=== PATIENT | female | born 1990 | race Caucasian/White ===

== ENCOUNTER 2019-03-25 06:23 | Inpatient (IN) ==
[~2019-03-25 06:23] MED LIST: CEFAZOLIN 2000MG 2,000 MG/15 ML SYR IV SCH; CITRIC ACID/SODIUM CITRATE 15 ML UDC PO SCH
[2019-03-25] MEDS ORDERED: TERBUTALINE SULFATE 1 MG/ML VIAL SQ ONE (09:48)
[2019-03-25] MEDS ORDERED: TERBUTALINE SULFATE 1 MG/ML VIAL ONE (09:54)
[2019-03-25] MEDS ORDERED: LACTATED RINGER'S 1,000 ML IV SCH ×2 (10:00→12:45)
[2019-03-25 10:10] LABS: Basophils # (auto) 0.01 K/uL (0-0.2); Basophils % (auto) 0.1 %; Eosinophils # (auto) 0.01 K/uL (0-0.5); Eosinophils % (auto) 0.1 %; Hematocrit (blood only) 33.5 % (37-47); Hemoglobin 11.7 g/dL (12.0-16.0); Immature Granulocytes # (auto) 0.02 K/uL (0.00-0.02); Immature Granulocytes % (auto) 0.2 %; Lymphocytes # (auto) 1.67 K/uL (1.2-3.4); Lymphocytes % (auto) 18.8 %; Mean Corpuscular Volume 84.4 fL (80-100); Mean Platelet Volume 11.1 fL (7.4-10.4); Monocytes # (auto) 0.41 K/uL (0.11-0.59); Monocytes % (auto) 4.6 %; Neutrophils # (auto) 6.78 K/uL (1.4-6.5); Neutrophils % (auto) 76.2 %; Platelet Count 177 K/uL (130-400); RDW Coefficient of Variation 14.1 % (11.5-14.5); RDW Standard Deviation 43.9 fL (36.4-46.3); Red Blood Count 3.97 M/uL (4.2-5.4)
[2019-03-25 10:14] LABS: Mean Corpuscular Hgb Conc 34.9 g/dL (32-36)
[2019-03-25] MEDS ORDERED: MoRPHine SULFATE PF 1 MG/ML 10 ML AMP/VIAL ONE (10:41)
[2019-03-25] MEDS ORDERED: fentaNYL citrate 100 MCG/2 ML VIAL ONE (10:41)
[2019-03-25] MEDS: LACTATED RINGER'S 1,000 ML IV SCH ×2 (10:48→19:12)
[2019-03-25] MEDS ORDERED: OXYTOCIN 10 UNITS/ML VIAL IM ONE (11:52)
[2019-03-25] MEDS ORDERED: METHYLERGONOVINE MALEATE 0.2 MG/ML AMP ONE (12:02)
[2019-03-25] MEDS ORDERED: ONDANSETRON INJ 2 MG/ML 2 ML VIAL ONE (12:02)
[2019-03-25] MEDS ORDERED: PHENYLEPHRINE 100MCG/ML 5ML SYR ONE (12:02)
[2019-03-25] MEDS ORDERED: DEXAMETHASONE SOD INJ 4 MG/ML VIAL ONE (12:02)
[2019-03-25] MEDS ORDERED: NALOXONE HCL 0.4 MG/1 ML VIAL/CARP IV PRN (12:07)
[2019-03-25] MEDS ORDERED: NALBUPHINE HCL INJ 10 MG/ML AMP IV PRN (12:07)
[2019-03-25] MEDS ORDERED: NALOXONE HCL 0.08 MG in SYRINGE 1.8 ML IV PRN (12:07)
[2019-03-25] MEDS ORDERED: ePHEDrine sulfate 50 MG/ML AMP IV PRN (12:07)
[2019-03-25] MEDS ORDERED: DiphenhydrAMINE HCL 50 MG/ML VIAL IV PRN (12:07)
[2019-03-25] MEDS ORDERED: PROMETHAZINE HCL 25 MG in SODIUM CHLORIDE 0.9% 50 ML IV PRN (12:07)
[2019-03-25] MEDS ORDERED: LACTATED RINGER'S 500 ML IV PRN (12:07)
[2019-03-25] MEDS ORDERED: NALOXONE HCL 1 MG in SODIUM CHLORIDE 0.9% 1000ML 1,000 ML IV PRN (12:07)
[2019-03-25] MEDS ORDERED: ONDANSETRON INJ 2 MG/ML 2 ML VIAL IV PRN ×2 (12:07→12:35)
[2019-03-25] MEDS ORDERED: MoRPHine SULFATE PF 1 MG/ML 10 ML AMP/VIAL INT SPINAL ONE (12:07)
[2019-03-25] MEDS ORDERED: NO NARCOTICS OR SEDATIVES SCH (12:15)
[2019-03-25] MEDS ORDERED: SODIUM CHLORIDE 0.9% 1000ML 1,000 ML IV SCH (12:15)
--- NOTE | 2019-03-25 12:18 | History and Physical Report ---
DATE OF ADMISSION: 03/25/2019 HISTORY OF PRESENT ILLNESS: The patient is a 28-year-old G1, P0, due date 03/29/2019, making her 39 weeks and 3 days, presented to labor and delivery with spontaneous rupture of membranes at 0500 hours today. Fluid is clear. On arrival to labor and delivery, she had no shortness of breath, no chills, no fever. The infant, however, is breech. Ultrasound done has confirmed that the is breech. This was known and the patient was scheduled for section on Tuesday. COURSE: Unremarkable. LABORATORIES: Blood type O positive, antibody negative, rubella immune. PAST MEDICAL HISTORY: None. PAST SURGICAL HISTORY: None. SOCIAL HISTORY: The patient denies tobacco, drug or alcohol use. ALLERGIES: CODEINE. FAMILY HISTORY: Noncontributory. PHYSICAL EXAMINATION HEART: S1, S2, regular rhythm and rate. LUNGS: Clear to auscultation bilaterally. ABDOMEN: Soft, gravid. Bedside ultrasound shows breech presentation. PELVIC: 2 cm, 50% effaced. EXTREMITIES: No cyanosis, clubbing, or edema. ASSESSMENT AND PLAN: A 28-year-old 1, para 0 at 39 weeks and 3 days' gestation, breech presentation. The patient had term premature rupture of membranes. The patient was scheduled for section. We will proceed with section as scheduled. Reviewed risks of surgery including but not limited to infection, bleeding, damage to internal organs. The patient has re-signed consent with Dr. Washington. Anesthesia is notified. We will proceed with surgery.
[2019-03-25] MEDS ORDERED: OXYTOCIN 10 UNITS/ML VIAL ONE (12:19)
[2019-03-25] MEDS ORDERED: miSOPROStol 200 MCG TAB ONE (12:28)
[2019-03-25] MEDS ORDERED: BENZOCAINE 20% AER SPR 82.5 GM CAN EXT PRN (12:35)
[2019-03-25] MEDS ORDERED: MAGNESIUM HYDROXIDE SUSP 30 ML UDC PO PRN (12:35)
[2019-03-25] MEDS ORDERED: SUPERCREAM 0.870% 15 GM JAR EXT PRN (12:35)
[2019-03-25] MEDS ORDERED: HYDROCORTISONE ACETATE 25 MG SUPP PR PRN (12:35)
[2019-03-25] MEDS ORDERED: DIPHTHERIA/TETANUS/PERTUSSIS 0.5 ML SYR/VIAL IM ONE (12:35)
[2019-03-25] MEDS ORDERED: SENNA 8.6 MG TAB PO PRN (12:35)
[2019-03-25] MEDS: KETOROLAC 30 MG/ML VIAL IV PRN (13:46)
--- NOTE | 2019-03-25 14:29 | Anesthesiology Progress Note ---
Date of Service March 25, 2019 Anesthesia Post Procedure Vital Signs Vital Signs: Temp Pulse Resp BP Pulse Ox 03/25/19 14:25 53 L 139/66 03/25/19 14:24 55 L 96 03/25/19 14:19 55 L 96 03/25/19 14:15 52 L 144/72 H 03/25/19 14:14 54 L 96 03/25/19 14:09 74 98 03/25/19 14:05 59 L 144/68 H 03/25/19 14:04 61 95 03/25/19 13:59 56 L 95 03/25/19 13:55 62 135/64 03/25/19 13:54 57 L 97 03/25/19 13:49 62 97 03/25/19 13:47 56 L 136/63 03/25/19 13:45 69 201/87 H 03/25/19 13:44 71 97 03/25/19 13:39 54 L 94 03/25/19 13:35 61 20 124/69 03/25/19 13:34 62 98 03/25/19 13:29 60 96 03/25/19 13:25 61 20 111/67 03/25/19 13:24 68 94 03/25/19 13:19 74 95 03/25/19 13:18 71 94 03/25/19 13:15 78 18 110/72 03/25/19 13:14 71 95 03/25/19 13:13 74 94 03/25/19 13:09 68 95 03/25/19 13:07 69 93 03/25/19 13:05 67 20 113/66 03/25/19 13:04 70 93 03/25/19 13:00 70 93 03/25/19 12:59 70 96 03/25/19 12:55 53 L 18 116/66 03/25/19 12:54 56 L 100 03/25/19 12:52 57 L 93 03/25/19 12:49 57 L 100 03/25/19 12:45 54 L 18 118/67 03/25/19 12:44 55 L 100 03/25/19 12:39 55 L 99 03/25/19 12:35 36.5 C 63 16 117/65 03/25/19 12:34 67 100 03/25/19 11:07 84 99 03/25/19 11:02 80 100 05/12/19 10:57 81 100 03/25/19 10:52 84 99 03/25/19 10:47 81 99 03/25/19 10:38 83 100 03/25/19 10:33 81 99 03/25/19 10:28 82 99 03/25/19 10:23 79 99 03/25/19 10:18 75 100 03/25/19 10:13 99 H 99 03/25/19 10:08 81 99 03/25/19 10:03 71 98 03/25/19 09:57 36.7 C 58 L 20 119/76 03/25/19 07:54 74 135/82 03/25/19 06:52 73 134/89 03/25/19 06:39 36.8 C 81 18 132/94 Pain Intensity Lower Abdomen: Pain Intensity: 2 Transfer of Care Handoff Completed per policy Notes Mental Status: alert / awake / arousable Patient Amnestic to Procedure: Yes Nausea / Vomiting: adequately controlled Pain: adequately controlled Airway Patency, RR, SpO2: stable & adequate BP & HR: stable & adequate Hydration State: stable & adequate Neuraxial Anesthesia: was administered and sensory block is resolving Anesthetic Complications: no major complications apparent
[2019-03-25] MEDS: PROMETHAZINE HCL 25 MG in SODIUM CHLORIDE 0.9% 50 ML IV PRN ×2 (15:36→15:41)
[2019-03-25] MEDS: SIMETHICONE 80 MG CHEW PO SCH ×2 (19:12→20:05)
[2019-03-25] MEDS: DOCUSATE SODIUM 100 MG CAP PO SCH (20:05)
--- NOTE | 2019-03-25 20:35 | Operative Report ---
DATE OF OPERATION: 03/25/2019 PREOPERATIVE DIAGNOSES: 1. at term. 2. in breech presentation. POSTOPERATIVE DIAGNOSIS: 1. at term. 2. Infant in breech presentation. PROCEDURE: Primary section. SURGEON: Arun Washington MD CORRECTIONS CASEWORKER: Dr. Sal ANESTHESIA: Spinal. ANESTHESIOLOGIST: Malcom Hurtado MD. FINDINGS: Live infant in a double footling presentation. There was no nuchal cord. The uterus and adnexa appeared grossly normal and unremarkable. DRAINS: Mejia catheter. PATHOLOGY: Placenta and cord blood. COMPLICATIONS: None. INTRAVENOUS FLUIDS: 1500 mL. ESTIMATED BLOOD LOSS: 700. URINE OUTPUT: 50 mL. DISPOSITION: Stable to recovery room. DESCRIPTION OF PROCEDURE: The patient was taken to the operating room where she was prepped and draped in normal sterile fashion. Timeout was called. A Pfannenstiel incision was made with a scalpel and carried down to the fascia. Fascia was incised in the midline and extended laterally on both sides with Mayos. The rectus abdominis muscle was sharply dissected superiorly and inferiorly off the fascia. Peritoneum was identified and entered sharply. Once inside the abdomen, an Jai retractor was placed for retraction. The vesicouterine peritoneum was sharply dissected off the lower segment of the uterus. Lower transverse incision was made on the uterus and extended laterally on both sides. Infant was delivered in double footling presentation, breech maneuvers were performed and the was delivered without any difficulty. Cord was clamped and cut. Cord blood was obtained. Infant handed over to pediatric team. Placenta manually removed. The uterus was exteriorized and cleared of all clots and debris. Uterus was closed with 0 Vicryl, double closure of the uterus was performed. Copious amount of irrigation was used to irrigate the abdomen. Uterus was returned into the abdominal cavity. There was good hemostasis at this point. Vesicouterine peritoneum was closed with plain suture. The abdominal peritoneum was closed. The fascia was closed using a running fashion 0 Vicryl stitch. SubQ was irrigated and closed with plain suture. Skin was closed with 4-0 Monocryl. All instruments were removed from the abdomen including sponges, needles and retractors and accounted for x2. Baby and mother are doing well in recovery. I attest to the content of the Intraoperative Record and any orders documented therein. Any exceptions are noted below. MTDD
[2019-03-25] MEDS ORDERED: OXYTOCIN 20 UNITS in LACTATED RINGER'S 1,000 ML IV SCH (20:45)
[2019-03-26] MEDS: LACTATED RINGER'S 1,000 ML IV SCH (00:04)
[2019-03-26] MEDS: KETOROLAC 30 MG/ML VIAL IV PRN (00:05)
[2019-03-26] MEDS ORDERED: DC INTRASPINAL MORPHINE ONE (06:07)
--- NOTE | 2019-03-26 06:07 | Anesthesiology Progress Note ---
Date of Service March 26, 2019 Pt is w/o c/o H/A,LBP, or LE weakness or paresthesias.Pt. has not been up and ambulating yet. Physical Exam Vital Signs: Last Vital Signs Temp 36.7 C 03/26/19 04:30 Pulse 54 L 03/26/19 04:30 Resp 18 03/26/19 05:30 BP 118/72 03/26/19 04:30 Pulse Ox 99 03/26/19 05:30 Results & Data Medications Administered Docusate Sodium (Colace) 100 mg PO BID ANKUSH Stop: 04/24/19 20:59 Last Admin: 03/25/19 20:05 Dose: 100 mg Documented by: [id number] Lactated Ringer's (Lr) 1,000 mls @ 125 mls/hr IV .Q8H ANKUSH Stop: 04/24/19 10:53 Last Admin: 03/26/19 00:04 Dose: 125 mls/hr Documented by: [id number] Admin: 03/25/19 19:12 Dose: Not Given Documented by: [id number] Infusion: 03/25/19 16:03 Dose: 0 mls/hr Documented by: [id number] Infusion: 03/25/19 12:35 Dose: 125 mls/hr Documented by: [id number] Infusion: 03/25/19 11:07 Dose: 0 mls/hr Documented by: [id number] Admin: 03/25/19 10:48 Dose: 125 mls/hr Documented by: [id number] Sodium Chloride (Nss 1000ml) 1,000 mls @ 15 mls/hr IV .Q24H ANKUSH Stop: 03/26/19 06:07 Last Admin: 03/25/19 18:15 Dose: Not Given Documented by: [id number] Lactated Ringer's (Lr) 1,000 mls @ 125 mls/hr IV .Q8H ANKUSH Stop: 04/24/19 12:44 Last Admin: 03/25/19 18:15 Dose: Not Given Documented by: [id number] Oxytocin 20 units/ Lactated (Ringer's) 1,002 mls @ 125 mls/hr IV .Q8H1M ANKUSH Stop: 04/24/19 20:44 Last Infusion: 03/25/19 19:11 Dose: 125 mls/hr Documented by: [id number] Cosigned by: [id number] Admin: 03/25/19 16:03 Dose: 125 mls/hr Documented by: [id number] Cosigned by: [id number] Promethazine HCl 25 mg/ Sodium (Chloride) 51 mls @ 204 mls/hr IV Q4H PRN PRN Reason: Nausea And Vomiting Stop: 04/24/19 12:34 Last Admin: 03/25/19 15:41 Dose: 204 mls/hr Documented by: [id number] Infusion: 03/25/19 15:41 Dose: 204 mls/hr Documented by: [id number] Admin: 03/25/19 15:36 Dose: 204 mls/hr Documented by: [id number] Ketorolac Tromethamine (Toradol) 30 mg IV Q6H PRN PRN Reason: Breakthrough Surgical Pain Stop: 03/26/19 06:09 Last Admin: 03/26/19 00:05 Dose: 30 mg Documented by: [id number] Admin: 03/25/19 13:46 Dose: 30 mg Documented by: [id number] Ondansetron HCl (Zofran) 4 mg IV Q6H PRN PRN Reason: Nausea And Vomiting Stop: 03/26/19 06:09 Last Admin: 03/25/19 14:15 Dose: 4 mg Documented by: [id number] Simethicone (Mylicon) 80 mg PO QID ANKUSH Stop: 04/24/19 12:59 Last Admin: 03/25/19 20:05 Dose: 80 mg Documented by: [id number] Admin: 03/25/19 19:12 Dose: Not Given Documented by: [id number] Admin: 03/25/19 19:12 Dose: Not Given Documented by: [id number]
[2019-03-26] MEDS ORDERED: DiphenhydrAMINE HCL 50 MG/ML VIAL IV PRN (06:08)
[2019-03-26] MEDS: OXYCODONE/ACETAMINOPHEN 5mg/325mg TAB PO PRN ×4 (06:22→19:49)
[2019-03-26] MEDS: IBUPROFEN 600 MG TAB PO PRN ×4 (06:22→19:49)
[2019-03-26 06:28] LABS: Basophils # (auto) 0.01 K/uL (0-0.2); Basophils % (auto) 0.1 %; Hematocrit (blood only) 31.1 % (37-47); Hemoglobin 10.8 g/dL (12.0-16.0); Immature Granulocytes # (auto) 0.06 K/uL (0.00-0.02); Immature Granulocytes % (auto) 0.3 %; Lymphocytes # (auto) 2.64 K/uL (1.2-3.4); Lymphocytes % (auto) 14.9 %; Mean Corpuscular Hgb Conc 34.7 g/dL (32-36); Mean Corpuscular Volume 84.3 fL (80-100); Mean Platelet Volume 10.9 fL (7.4-10.4); Monocytes # (auto) 1.29 K/uL (0.11-0.59); Monocytes % (auto) 7.3 %; Neutrophils # (auto) 13.71 K/uL (1.4-6.5); Neutrophils % (auto) 77.4 %; Platelet Count 186 K/uL (130-400); RDW Coefficient of Variation 14.2 % (11.5-14.5); RDW Standard Deviation 43.9 fL (36.4-46.3); Red Blood Count 3.69 M/uL (4.2-5.4); White Blood Count 17.71 K/uL (4.8-10.8)
--- NOTE | 2019-03-26 09:02 | Obstetrical Progress Note ---
Date of Service March 26, 2019 Subjective Patient is seen and examined. She feels well, no complaints. Pain is under control with oral meds. Ambulated without dizziness Has not voided yet Tolerating regular diet with out N&V Flatus + BM neg Bleeding is minimal No fever/ chills/ CP/ SOB/ N&V/ Leg pain Breast feeding without problems Vital Signs Temp Pulse Pulse Resp BP BP Pulse Ox 03/26/19 06:30 18 99 03/26/19 05:30 18 99 03/26/19 04:30 36.7 C 54 L 18 118/72 99 03/26/19 03:30 20 99 03/26/19 02:30 18 99 03/26/19 01:30 18 99 03/26/19 00:30 18 98 03/25/19 23:30 36.7 C 47 L 20 116/70 98 03/25/19 22:05 16 95 03/25/19 21:13 16 97 03/25/19 20:05 16 96 03/25/19 19:50 36.7 C 51 L 16 133/84 96 03/25/19 18:00 20 97 03/25/19 17:25 20 95 03/25/19 16:15 36.9 C 55 L 18 134/84 94 03/25/19 15:05 36.8 C 57 L 20 136/83 97 03/25/19 14:55 54 L 139/65 03/25/19 14:54 55 L 93 03/25/19 14:49 55 L 96 03/25/19 14:45 55 L 134/84 03/25/19 14:44 57 L 95 03/25/19 14:39 57 L 98 03/25/19 14:37 55 L 90 03/25/19 14:35 36.7 C 56 L 18 130/60 03/25/19 14:34 60 98 03/25/19 14:29 58 L 97 03/25/19 14:25 53 L 139/66 03/25/19 14:24 55 L 96 03/25/19 14:19 55 L 96 03/25/19 14:15 52 L 144/72 H 03/25/19 14:14 54 L 96 03/25/19 14:09 74 98 03/25/19 14:05 59 L 144/68 H 03/25/19 14:04 61 95 03/25/19 13:59 56 L 95 03/25/19 13:55 62 135/64 03/25/19 13:54 57 L 97 03/25/19 13:49 62 97 03/25/19 13:47 56 L 136/63 03/25/19 13:45 69 201/87 H 03/25/19 13:44 71 97 03/25/19 13:39 54 L 94 03/25/19 13:35 61 20 124/69 03/25/19 13:34 62 98 03/25/19 13:29 60 96 03/25/19 13:25 61 20 111/67 03/25/19 13:24 68 94 03/25/19 13:19 74 95 03/25/19 13:18 71 94 03/25/19 13:15 78 18 110/72 03/25/19 13:14 71 95 03/25/19 13:13 74 94 03/25/19 13:09 68 95 03/25/19 13:07 69 93 03/25/19 13:05 67 20 113/66 03/25/19 13:04 70 93 03/25/19 13:00 70 93 03/25/19 12:59 70 96 03/25/19 12:55 53 L 18 116/66 03/25/19 12:54 56 L 100 03/25/19 12:52 57 L 93 03/25/19 12:49 57 L 100 03/25/19 12:45 54 L 18 118/67 03/25/19 12:44 55 L 100 03/25/19 12:39 55 L 99 03/25/19 12:35 36.5 C 63 16 117/65 03/25/19 12:34 67 100 03/25/19 11:07 84 99 03/25/19 11:02 80 100 03/25/19 10:57 81 100 03/25/19 10:52 84 99 03/25/19 10:47 81 99 03/25/19 10:38 83 100 03/25/19 10:33 81 99 03/25/19 10:28 82 99 03/25/19 10:23 79 99 03/25/19 10:18 75 100 03/25/19 10:13 99 H 99 03/25/19 10:08 81 99 03/25/19 10:03 71 98 03/25/19 09:57 36.7 C 58 L 20 119/76 Intake and Output 03/25/19 03/26/19 03/26/19 22:59 06:59 14:59 Intake Total 2302.000 / 3741.583 Output Total 1525 / 2125 600 / 2125 Balance 777.000 / 1616.583 -600 / 1616.583 Intake: IV 842.000 / 1881.583 Lr 1,000 ml @ 125 mls/hr IV . 433.333 / 472.916 Q8H ANKUSH Rx#:[id number] Pitocin 20 Units In Lr 1,000 ml 391.667 / 391.667 @ 125 mls/hr IV .Q8H1M ANKUSH Rx# :[id number] Phenergan 25 mg In Nss 50 ml @ 204 mls/hr IV Q4H PRN Rx#: [id number] IV Perioperative 1000 / 1000 Oral 460 / 860 Output: Emesis 450 / 450 Estimated Blood Loss 700 / 700 Urine Amount (Catheter) 375 / 975 600 / 975 Mejia/Indwelling 375 / 975 600 / 975 Other: # Emeses 1 03/26/19 03/25/19 Range/Units 06:07 09:59 WBC 17.71 H 8.90 (4.8-10.8) K/uL RBC 3.69 L 3.97 L (4.2-5.4) M/uL Hgb 10.8 L 11.7 L (12.0-16.0) g/dL Hct 31.1 L 33.5 L (37-47) % MCV 84.3 84.4 (80-100) fL MCH 29.3 29.5 (25-34) pg MCHC 34.7 34.9 (32-36) g/dL RDW Std Deviation 43.9 43.9 (36.4-46.3) fL RDW Coeff of Beverley 14.2 14.1 (11.5-14.5) % Plt Count 186 177 (130-400) K/uL MPV 10.9 H 11.1 H (7.4-10.4) fL Immature Gran % (Auto) 0.3 0.2 % Neut % (Auto) 77.4 76.2 % Lymph % (Auto) 14.9 18.8 % Jay % (Auto) 7.3 4.6 % Eos % (Auto) 0.0 0.1 % Baso % (Auto) 0.1 0.1 % Immature Gran # (Auto) 0.06 H 0.02 (0.00-0.02) K/uL Neut # (Auto) 13.71 H 6.78 H (1.4-6.5) K/uL Lymph # (Auto) 2.64 1.67 (1.2-3.4) K/uL Jay # (Auto) 1.29 H 0.41 (0.11-0.59) K/uL Eos # (Auto) 0.00 0.01 (0-0.5) K/uL Baso # (Auto) 0.01 0.01 (0-0.2) K/uL PE: General: Alert, orientedx3, NAD CVS: S1S2 RRR Lungs; CTAB Abd: soft, NT, ND, BS+, fundus firm, below Umbilicus Incision/ dressing: Clean, dry, intact Perineum intact, Lochia rubra minimal Ext; NT, no edema AP: 28 yo s/p C Section, pod# 1 VSS Afebrile doing well Continue routine postop care Encourage ambulation, PO intake All questions were answered Results & Data Vital Signs (Past 12 Hours) Vital Signs Temp Pulse Resp BP Pulse Ox 03/26/19 06:30 18 99 03/26/19 05:30 18 99 03/26/19 04:30 36.7 C 54 L 18 118/72 99 03/26/19 03:30 20 99 03/26/19 02:30 18 99 03/26/19 01:30 18 99 03/26/19 00:30 18 98 03/25/19 23:30 36.7 C 47 L 20 116/70 98 03/25/19 22:05 16 95 03/25/19 21:13 16 97
[2019-03-26] MEDS: DOCUSATE SODIUM 100 MG CAP PO SCH ×2 (10:10→21:08)
[2019-03-26] MEDS: SIMETHICONE 80 MG CHEW PO SCH ×4 (10:10→21:08)
[2019-03-26] MEDS: PRENATAL VITAMIN 1 TAB PO SCH (10:10)
[2019-03-26] MEDS: FERROUS SULFATE 325 MG TAB PO SCH (10:10)
[2019-03-26] MEDS ORDERED: BISACODYL 5 MG TABEC PO SCH (20:00)
[2019-03-27] MEDS: OXYCODONE/ACETAMINOPHEN 5mg/325mg TAB PO PRN ×4 (00:34→15:50)
[2019-03-27] MEDS: IBUPROFEN 600 MG TAB PO PRN ×4 (00:35→15:49)
[2019-03-27 07:12] LABS: Basophils # (auto) 0.02 K/uL (0-0.2); Basophils % (auto) 0.1 %; Eosinophils # (auto) 0.05 K/uL (0-0.5); Eosinophils % (auto) 0.4 %; Hematocrit (blood only) 31.5 % (37-47); Hemoglobin 10.9 g/dL (12.0-16.0); Immature Granulocytes # (auto) 0.03 K/uL (0.00-0.02); Immature Granulocytes % (auto) 0.2 %; Lymphocytes # (auto) 2.01 K/uL (1.2-3.4); Lymphocytes % (auto) 14.9 %; Mean Corpuscular Hgb Conc 34.6 g/dL (32-36); Mean Corpuscular Volume 84.5 fL (80-100); Mean Platelet Volume 10.6 fL (7.4-10.4); Monocytes # (auto) 0.69 K/uL (0.11-0.59); Monocytes % (auto) 5.1 %; Neutrophils # (auto) 10.66 K/uL (1.4-6.5); Neutrophils % (auto) 79.3 %; Platelet Count 200 K/uL (130-400); RDW Coefficient of Variation 14.5 % (11.5-14.5); RDW Standard Deviation 45.2 fL (36.4-46.3); Red Blood Count 3.73 M/uL (4.2-5.4); White Blood Count 13.46 K/uL (4.8-10.8)
[2019-03-27] MEDS: PRENATAL VITAMIN 1 TAB PO SCH (07:27)
[2019-03-27] MEDS: SIMETHICONE 80 MG CHEW PO SCH ×4 (07:27→20:46)
[2019-03-27] MEDS: DOCUSATE SODIUM 100 MG CAP PO SCH ×2 (07:27→20:46)
[2019-03-27] MEDS: FERROUS SULFATE 325 MG TAB PO SCH (07:27)
--- NOTE | 2019-03-27 09:59 | Surgery Progress Note ---
Date of Service March 27, 2019 Subjective doing well passing gas no BM yet tolerating diet Physical Exam Constitutional: WD/WN, vitals as above comfortable Abdomen soft no tenderness Fundus firm no edema neg Toshia's Will d/c in AM Results & Data Vital Signs (Past 12 Hours) Vital Signs Temp Pulse Resp BP Pulse Ox 03/27/19 07:30 36.6 C 61 18 124/71 98 03/27/19 00:40 36.6 C 80 18 126/78 98
--- NOTE | 2019-03-27 10:08 | Obstetrical Progress Note ---
Date of Service March 27, 2019 Physical Exam Physical Exam: doing well Cervidil 10 mg placed vaginally FHT Cat 1 Results & Data Vital Signs (Past 12 Hours) Vital Signs Temp Pulse Resp BP Pulse Ox 03/27/19 07:30 36.6 C 61 18 124/71 98 03/27/19 00:40 36.6 C 80 18 126/78 98
[2019-03-27] MEDS ORDERED: BISACODYL 10 MG SUPP PR PRN (12:35)
[2019-03-27 19:00] VITALS: O2SAT 97
[2019-03-28] MEDS: OXYCODONE/ACETAMINOPHEN 5mg/325mg TAB PO PRN ×2 (02:30→08:55)
[2019-03-28] MEDS: IBUPROFEN 600 MG TAB PO PRN ×2 (02:30→08:57)
--- NOTE | 2019-03-28 08:39 | Obstetrical Progress Note ---
Date of Service March 28, 2019 Subjective Patient is seen and examined. She feels well, no complaints. Pain is under control with oral meds. Ambulating without dizziness Voiding without difficulty Tolerating regular diet with out N&V Flatus + BM + Bleeding is minimal No fever/ chills/ CP/ SOB/ N&V/ Leg pain Breast feeding without problems Vital Signs Temp Pulse Resp BP 03/27/19 23:45 36.6 C 66 18 120/79 Lab Results 03/25/19 03/25/19 03/26/19 Range/Units 07:01 09:59 06:07 WBC 8.90 17.71 H (4.8-10.8) K/uL RBC 3.97 L 3.69 L (4.2-5.4) M/uL Hgb 11.7 L 10.8 L (12.0-16.0) g/dL Hct 33.5 L 31.1 L (37-47) % MCV 84.4 84.3 (80-100) fL MCH 29.5 29.3 (25-34) pg MCHC 34.9 34.7 (32-36) g/dL RDW Std Deviation 43.9 43.9 (36.4-46.3) fL RDW Coeff of Beverley 14.1 14.2 (11.5-14.5) % Plt Count 177 186 (130-400) K/uL MPV 11.1 H 10.9 H (7.4-10.4) fL Immature Gran % (Auto) 0.2 0.3 % Neut % (Auto) 76.2 77.4 % Lymph % (Auto) 18.8 14.9 % [place] % (Auto) 4.6 7.3 % Eos % (Auto) 0.1 0.0 % Baso % (Auto) 0.1 0.1 % Immature Gran # (Auto) 0.02 0.06 H (0.00-0.02) K/uL Neut # (Auto) 6.78 H 13.71 H (1.4-6.5) K/uL Lymph # (Auto) 1.67 2.64 (1.2-3.4) K/uL [place]aves # (Auto) 0.41 1.29 H (0.11-0.59) K/uL Eos # (Auto) 0.01 0.00 (0-0.5) K/uL Baso # (Auto) 0.01 0.01 (0-0.2) K/uL Amniotic Protein POS 03/27/19 Range/Units 07:00 WBC 13.46 H (4.8-10.8) K/uL RBC 3.73 L (4.2-5.4) M/uL Hgb 10.9 L (12.0-16.0) g/dL Hct 31.5 L (37-47) % MCV 84.5 (80-100) fL MCH 29.2 (25-34) pg MCHC 34.6 (32-36) g/dL RDW Std Deviation 45.2 (36.4-46.3) fL RDW Coeff of Beverley 14.5 (11.5-14.5) % Plt Count 200 (130-400) K/uL MPV 10.6 H (7.4-10.4) fL Immature Gran % (Auto) 0.2 % Neut % (Auto) 79.3 % Lymph % (Auto) 14.9 % [place] % (Auto) 5.1 % Eos % (Auto) 0.4 % Baso % (Auto) 0.1 % Immature Gran # (Auto) 0.03 H (0.00-0.02) K/uL Neut # (Auto) 10.66 H (1.4-6.5) K/uL Lymph # (Auto) 2.01 (1.2-3.4) K/uL [place] # (Auto) 0.69 H (0.11-0.59) K/uL Eos # (Auto) 0.05 (0-0.5) K/uL Baso # (Auto) 0.02 (0-0.2) K/uL Amniotic Protein PE: General: Alert, orientedx3, NAD CVS: S1S2 RRR Lungs; CTAB Abd: soft, NT, ND, BS+, fundus firm, below Umbilicus Incision: Clean, dry, intact Perineum intact, Lochia rubra minimal Ext; NT, no edema AP: 28 yo s/p C Section, pod# 3 VSS Afebrile doing well Continue routine postop care Encourage ambulation, PO intake All questions were answered D/C home , f/u in office Discussed when to call Results & Data Vital Signs (Past 12 Hours) Vital Signs Temp Pulse Resp BP 03/27/19 23:45 36.6 C 66 18 120/79
[2019-03-28] MEDS: SIMETHICONE 80 MG CHEW PO SCH (08:56)
[2019-03-28] MEDS: DOCUSATE SODIUM 100 MG CAP PO SCH (08:57)
[2019-03-28] MEDS: PRENATAL VITAMIN 1 TAB PO SCH (08:57)
[2019-03-28] MEDS: FERROUS SULFATE 325 MG TAB PO SCH (08:57)
[2019-03-28 11:16] VITALS: BP 128/77; PULSE 59; TEMP 98.1
--- NOTE | 2019-04-07 00:06 | Discharge Summary ---
CHIEF COMPLAINT: 1. at term. 2. Term premature rupture of membranes. 3. Breech presentation. HISTORY OF PRESENT ILLNESS: This is a 28-year-old G1, P0 at 39 weeks and 3 days, due date was 03/29/2019. The patient presented to labor and delivery on 03/25/2019 with spontaneous rupture of membranes. was breech and patient has been scheduled for section on Tuesday. On arrival to labor and delivery, she had no shortness of breath, chills, or fever. There was gross rupture of membranes. She therefore underwent section. Details of surgery and infant information in the respective record. Surgery otherwise was unremarkable. The patient did well and met all milestones in recovery. On postop day 1, she was able to tolerate p.o. food, medications. Her diet and activity was advanced the next day. The patient went home in stable condition on 03/28/2019. PAST MEDICAL HISTORY: None. PAST SURGICAL HISTORY: None. SOCIAL HISTORY: The patient denied tobacco, drug, or alcohol use. FAMILY HISTORY: Noncontributory. ALLERGIES: THE PATIENT HAS ALLERGY TO CODEINE. REVIEW OF SYSTEMS: Negative except under HPI. PHYSICAL EXAMINATION: VITAL SIGNS: On 03/28/2019 showed a temperature of 36.7, respiration of 18, blood pressure of 128/77. HEART: S1, S2, regular rhythm and rate. LUNGS: Clear to auscultation bilaterally. ABDOMEN: Nontender, nondistended, positive bowel sounds. Incision was clean, dry, and intact. EXTREMITIES: No cyanosis, clubbing, or edema. LABORATORY DATA: On 03/27/2019 showed hemoglobin of 10.9, hematocrit of 31.5. CONDITION ON DISCHARGE: Stable. OPERATION: Primary section for breech presentation. DISCHARGE DIAGNOSIS: Postop after section. PLAN ON DISCHARGE: The patient is discharged home with instructions regarding activity, diet, followup appointment, and medications.
== END 2019-03-28 13:15 | disposition home or self-care (01) | DRG 788 ==
LOC: OPB 06:23 → 4S1 06:25 → 4S2 15:46

== ENCOUNTER 2021-11-18 05:14 | Inpatient (IN) ==
--- NOTE | 2021-11-13 09:49 | Anesthesiology Consultation ---
Date of Service November 13, 2021 Assessment & Plan (1) Encounter for pre-operative examination: - COVID screening: Per scientific associate on 11/13/2021: Travel screen negative, no known COVID-19 positive contacts or current COVID-19 related symptoms in past 2 weeks. Patient vaccinated. Surgeon arranging preop COVID testing, scheduled 11/16/2021 FRANK Torito Lee. Awaiting results. Chart Review Chart Review: entry specialist initiated History Surgery Operation Date: 11/18/21 07:30 Proposed Procedures p Repeat Section - Yana Yun MD, PhD Height/Weight Height: 5 ft 8 in Weight: 104.78 kg Allergies Allergy/AdvReac Type Severity Reaction Status Date / Time codeine Allergy Mild RASH AND Verified 11/13/21 08:14 STOMACH PAINS ethinyl estradiol Allergy Mild SWELLING Verified 11/13/21 08:14 [From NuvaRing] etonogestrel [From NuvaRing] Allergy Mild SWELLING Verified 11/13/21 08:14 Medications Home Medications Medication Instructions Recorded Confirmed Last Taken vitamins-iron fumarate 27 1 tab PO PM 03/25/19 11/13/21 03/16/19 08:00 mg iron-folic acid 0.8 mg tablet ( Vitamin) ibuprofen 600 mg tablet 600 mg PO Q6 #30 tab 03/28/19 11/13/21 Unknown oxycodone-acetaminophen 5 mg-325 1 tab PO Q4H #16 tab 03/28/19 11/13/21 Unknown mg tablet (Percocet) sertraline 50 mg tablet (Zoloft) 50 mg PO PM 11/13/21 11/13/21 Unknown Past Medical History Medical History Anemia Anxiety Asthma CHILDHOOD; NO RECENT ISSUES GERD (gastroesophageal reflux disease) Obesity Past Surgical History Surgical History (Updated 11/13/21 @ 09:48 by Garima Ferguson PA-C) History of section x1 03/28/2019: SAB at L3-L4 x 1 attempt. No issues per anesthesia postop progress note. Pinnacle teeth removed Social History Smoking Status: Never smoker Do You Dip or Chew Tobacco: No Hx Alcohol Use: No Hx Substance Use: No substance use type: does not use Lab Results Anesthesia Preop Results Results Lab Comments: 10/23/2021: WBC 8.48 RBC 4.11 HGB 11.9 HCT 35.7 Plt 235 ABO O RH Positive RBC Ab screen Negative PT 12.1 PTT 31 INR 0.87 BUN 11 Cr 0.8 Na 141 K 4.7 Cl 108 CO2 22 Glucose 87 Albumin 3.3 AST 18 Alk phos 116
[2021-11-18] MEDS ORDERED: LACTATED RINGER'S 1,000 ML IV SCH ×3 (05:30→08:45)
[2021-11-18] MEDS ORDERED: CITRIC ACID/SODIUM CITRATE 15 ML UDC PO SCH (06:00)
[2021-11-18] MEDS ORDERED: ceFAZolin 2,000 MG in SYRINGE 0 ML IV SCH (06:00)
--- NOTE | 2021-11-18 07:09 | History & Physical Bridge Note ---
Date of Service November 18, 2021 History & Physical Bridge Note I have examined the patient, reviewed the History & Physical and in the interval since the performance of the History & Physical I have noted the following changes of clinical significance: no changes noted FHT: baseline 140, mod variability, + accels, no decels, Cat I [place]: irregular contractions
[2021-11-18 07:15] LABS: Basophils # (auto) 0.01 K/uL (0-0.2); Basophils % (auto) 0.1 %; Eosinophils # (auto) 0.02 K/uL (0-0.5); Eosinophils % (auto) 0.2 %; Hematocrit (blood only) 35.1 % (37-47); Hemoglobin 11.9 g/dL (12.0-16.0); Immature Granulocytes # (auto) 0.02 K/uL (0.00-0.02); Immature Granulocytes % (auto) 0.2 %; Lymphocytes # (auto) 1.99 K/uL (1.2-3.4); Lymphocytes % (auto) 24.1 %; Mean Corpuscular Hemoglobin 29.3 pg (25-34); Mean Corpuscular Volume 86.5 fL (80-100); Mean Platelet Volume 11.9 fL (7.4-10.4); Monocytes # (auto) 0.69 K/uL (0.11-0.59); Monocytes % (auto) 8.4 %; Neutrophils # (auto) 5.53 K/uL (1.4-6.5); Platelet Count 176 K/uL (130-400); RDW Coefficient of Variation 14.4 % (11.5-14.5); RDW Standard Deviation 45.5 fL (36.4-46.3); Red Blood Count 4.06 M/uL (4.2-5.4); White Blood Count 8.26 K/uL (4.8-10.8)
[2021-11-18 07:16] LABS: Mean Corpuscular Hgb Conc 33.9 g/dL (32-36)
[2021-11-18] MEDS ORDERED: NALOXONE HCL 0.08 MG in SYRINGE 1.8 ML IV PRN (07:28)
[2021-11-18] MEDS ORDERED: MoRPHine SULFATE PF 1 MG/ML 10 ML AMP/VIAL INT SPINAL ONE (07:28)
[2021-11-18] MEDS ORDERED: NALBUPHINE HCL INJ 10 MG/ML AMP IV PRN (07:28)
[2021-11-18] MEDS ORDERED: HYDROmorphone INJ 0.5 MG/0.5 ML SYR IV PRN (07:28)
[2021-11-18] MEDS ORDERED: diphenhydrAMINE 50 MG/ML VIAL IV PRN (07:28)
[2021-11-18] MEDS ORDERED: LACTATED RINGER'S 500 ML IV PRN (07:28)
[2021-11-18] MEDS ORDERED: ePHEDrine sulfate 50 MG/ML AMP IV PRN (07:28)
[2021-11-18] MEDS ORDERED: NALOXONE HCL 1 MG in SODIUM CHLORIDE 0.9% 1000ML 1,000 ML IV PRN (07:28)
[2021-11-18] MEDS ORDERED: NALOXONE HCL 0.4 MG/1 ML VIAL/CARP IV PRN (07:28)
[2021-11-18] MEDS ORDERED: ONDANSETRON INJ 2 MG/ML 2 ML VIAL IV PRN (07:28)
[2021-11-18] MEDS ORDERED: SODIUM CHLORIDE 0.9% 1000ML 1,000 ML IV SCH (07:30)
[2021-11-18] MEDS ORDERED: DC INTRASPINAL MORPHINE SCH (07:30)
[2021-11-18] MEDS ORDERED: NO NARCOTICS OR SEDATIVES SCH (07:30)
[2021-11-18] MEDS ORDERED: MoRPHine SULFATE PF 1 MG/ML 10 ML AMP/VIAL ONE (07:33)
[2021-11-18] MEDS ORDERED: fentaNYL citrate 100 MCG/2 ML VIAL ONE (07:33)
[2021-11-18] MEDS ORDERED: OXYTOCIN 10 UNITS/ML 10ML VIAL ONE ×2 (07:39→08:11)
[2021-11-18] MEDS ORDERED: ONDANSETRON INJ 2 MG/ML 2 ML VIAL ONE (07:55)
[2021-11-18] MEDS ORDERED: ePHEDrine sulfate 50 MG/ML SYR ONE (08:03)
--- NOTE | 2021-11-18 08:36 | Post Operative Brief Note ---
Immediate Post Op Note v1 Date of Surgery November 18, 2021 Pre & Post Diagnosis Operation Date: 11/18/21 07:30 Pre-Op Diagnosis: Elective repeat section. Post-Op Diagnosis: Same as above. I identified the patient and participated in the time-out.: Yes Procedure Operation Date: 11/18/21 07:30 Actual Procedures p Repeat Section. delivery of live female child 0808. Lower transverse uterine incision.(Bilateral) - Yana Yun MD, PhD Surgeon Yana Yun MD, PhD Aviation Program Manager Keith Torres MD Estimated Blood Loss 700 Findings Consistent with Post-Op Diagnosis Liveborn female 0808, normal uterus, Fallopian tubes and ovaries. Normal placenta Fluids 1000 mls Drains Mejia Catheter (draining clear yellow urine during procedure) Complications None Disposition Accompanied Patient To Recovery: Yes
[2021-11-18] MEDS ORDERED: DIPHTHERIA/TETANUS/PERTUSSIS 0.5 ML SYR/VIAL IM ONE (08:37)
[2021-11-18] MEDS ORDERED: HYDROCORTISONE ACETATE 25 MG SUPP PR PRN (08:37)
[2021-11-18] MEDS ORDERED: SUPERCREAM 0.870% 15 GM JAR EXT PRN (08:37)
[2021-11-18] MEDS ORDERED: BENZOCAINE 20% AER SPR 82.5 GM CAN EXT PRN (08:37)
[2021-11-18] MEDS ORDERED: MAGNESIUM HYDROXIDE SUSP 30 ML UDC PO PRN (08:37)
[2021-11-18] MEDS ORDERED: SENNA 8.6 MG TAB PO PRN (08:37)
--- NOTE | 2021-11-18 08:37 | Operative Report ---
Post Operative Report Pre & Post Diagnosis Operation Date: 11/18/21 07:30 Pre-Op Diagnosis: Elective repeat section. Post-Op Diagnosis: Same as above. I identified the patient and participated in the time-out.: Yes Procedure Operation Date: 11/18/21 07:30 Actual Procedures Repeat lower transverse Section. delivery of live female child 0808. Lower transverse uterine incision.(Bilateral) - Yana Yun MD, PhD Surgeon Yana Yun MD, PhD Seismic Interpreter Keith Torres MD Estimated Blood Loss 700 Findings See Below Liveborn female delivered at 0808 hrs. weighing 3852 or 8 pounds 7 ounces with Apgars 8/9. Intact placenta with three-vessel cord. Cord pH not obtained. Normal-appearing uterus, normal-appearing bilateral fallopian tubes and ovaries seen at time of surgery Fluids 1000 mls Specimens Placenta sent to pathology for hold Drains Mejia catheter Complications None Disposition Accompanied Patient To Recovery: Yes Indications 31-year-old -0-1-1 at 39 weeks and 4 days Previous delivery x1, desires elective repeat Description of Procedure CD Delivery Note History synopsis: Patient is a 31-year-old -0-1-1 at 39 weeks and 4 days who is scheduled for elective repeat delivery. She denies contractions, leaking of fluid or vaginal bleeding at the time of admission. She denies headache, blurry vision, right upper quadrant epigastric pain. Otherwise feeling well. Baby moving well Procedure Summary: section was recommended. Risks, benefits and alternatives were discussed including but not limited to infection, bleeding that may require blood products or hysterectomy for life saving measures, injury to surrounding organs including but not limited to bowel, bladder, ureters, tubes and ovaries and/or the baby. Should injury occur it could require longer/additional surgery to repair. Patient was also counselled about risk of DVT/PE, and injury to infant during delivery. The patient stated understanding and desired to proceed. All questions were answered posed by patient. Prior to being taken to the OR, 2 grams of cefazolin IV was administered. The patient was taken to the operating room where regional anesthesia was found to be adequate. Prior to monitors being removed FHR was 180 bpm with no decelerations. She was then prepared and draped in the usual sterile fashion in the dorsal supine position with a leftward tilt displacing the uterus. Mejia was draining to gravity. SCDs were on bilateral lower extremities. A pfannenstiel skin incision was then made with the scalpel and carried through to the underlying layer of fascia. The fascia was incised in the midline and the incision extended laterally with the Newell scissors. The superior aspect of the facial incision was then grasped with the Santana clamps, elevated and the underlying rectus muscles dissected off bluntly. Attention was then turned to the inferior aspect of this incision which in a similar fashion was grasped, elevated with the Santana clamps and the rectus muscle dissected off bluntly. The rectus muscles were in the midline. The peritoneum identified, grasped with the pick-ups and entered sharply with the Metzenbaum scissors. The peritoneal incision was then extended superiorly and inferiorly with good visualization of the bladder. The bladder blade was inserted and the vesicouterine peritoneum was identified, grasped with the pick-ups, and entered sharply with Metzenbaum scissors. This incision was then extended laterally and the bladder flap created digitally and the bladder blade was reinserted. The lower uterine segment was identified and incised in a transverse fashion with the scalpel. The uterine incision was then extended bluntly laterally. Artificial rupture of membranes demonstrated clear fluid. The bladder blade was removed. The fetus was in presentation. The infant's head delivered atraumatically. The anterior shoulders were delivered followed by the posterior shoulders then the remainder of the body. The 's mouth and nose were bulb suctioned. The umbilical cord was clamped times two and cut. The infant was handed off to the awaiting pediatric staff. A female was delivered weighing 3852 g with APGARS of 8 at 1 minute and 9 at 5 minutes. The infant was taken to the recovery room for transition. Cord blood gases were obtained. The placenta was removed with gentle traction. 30 units of oxytocin were added to IVF and allowed to run freely. The uterus was exteriorized and cleared of all clots and debris. The uterine incision was inspected and found to be without any extensions and was repaired with 0 Vicryl in a running, locked fashion. A second imbricating layer was performed. Upon inspection, the repaired hysterotomy was found to be hemostatic. The uterus was firm and returned to the abdomen. The gutters were cleared of all clots and debris. Car was then placed over the hysterotomy. The fascia was reapproximated with 0 Vicryl in a running fashion. The subcutaneous layer was closed with 2-0 Vicryl in a running fashion. The skin was closed in a subcuticular fashion with 4-0 vicryl. Dermabond and pressure bandage was applied over incision. The patient tolerated the procedure well. Sponge, lap and needle counts were correct x4. The patient was taken to the recovery room in stable condition. I attest to the content of the Intraoperative Record and any orders documented therein. Any exceptions are noted below.
--- NOTE | 2021-11-18 08:37 | Discharge Summary ---
Date of Service November 18, 2021 Admission HPI Per Admitting Provider 1. 31-year-old 011 at 39 4/7 dated by last menstrual period consistent with 8 week ultrasound 2. Previous delivery x1 3. Desires elective repeat delivery 4. GBS unknown 5. Generalized anxiety disorder Admission Exam (Per Admitting) Constitutional WD/WN, vitals as above Respiratory normal respiratory effort, lungs clear to auscultation Cardiovascular RRR, no murmur, no edema Gastrointestinal (Abdomen) normal bowel sounds, soft, nontender, no hepatosplenomegaly Discharge Data Consultations 11/18/21 05:19 Consult Anesthesiology Stat Procedures Performed Operation Date: 11/18/21 07:30 Actual Procedures p Repeat Section. delivery of live female child 0808. Lower transverse uterine incision.(Bilateral) - Yana Yun MD, PhD Hospital Course (1) Normal course: Doing well D/c home
--- NOTE | 2021-11-18 09:03 | Anesthesiology Progress Note ---
Date of Service November 18, 2021 Anesthesia Post Procedure Vital Signs Vital Signs: Temp Pulse Resp BP Pulse Ox 11/18/21 09:01 53 L 97 11/18/21 08:57 51 L 102/55 L 11/18/21 08:56 56 L 93 11/18/21 08:51 50 L 97 11/18/21 08:50 44 L 93 11/18/21 08:48 52 L 105/58 L 11/18/21 08:45 47 L 95 11/18/21 07:28 49 L 97 11/18/21 07:23 57 L 97 11/18/21 07:10 36.5 C 58 L 20 132/85 11/18/21 05:40 36.6 C 18 11/18/21 05:34 74 123/80 Transfer of Care Handoff Completed per policy Notes Mental Status: alert / awake / arousable Patient Amnestic to Procedure: Yes Nausea / Vomiting: adequately controlled Pain: adequately controlled Airway Patency, RR, SpO2: stable & adequate BP & HR: stable & adequate Hydration State: stable & adequate Neuraxial Anesthesia: was administered and sensory block is resolving Anesthetic Complications: no major complications apparent and Pt Satisfied with anesthetic care
[2021-11-18] MEDS ORDERED: ARISTA ABSORBABLE HEMOSTAT 3GM TOP ONE (09:23)
[2021-11-18] MEDS: KETOROLAC 30 MG/ML VIAL IV PRN ×2 (10:48→20:50)
[2021-11-18] MEDS: OXYTOCIN 20 UNITS in LACTATED RINGER'S 1,000 ML IV SCH ×2 (12:32→20:45)
[2021-11-18] MEDS: SIMETHICONE 80 MG CHEW PO SCH ×3 (13:00→20:45)
[2021-11-18] MEDS: SERTRALINE HCL 50 MG TABLET PO SCH (20:45)
[2021-11-18] MEDS: DOCUSATE SODIUM 100 MG CAP PO SCH (20:45)
[2021-11-19] MEDS ORDERED: KETOROLAC 30 MG/ML VIAL IV PRN (01:29)
[2021-11-19] MEDS ORDERED: PROMETHAZINE HCL 25 MG in SODIUM CHLORIDE 0.9% 50 ML IV PRN (01:29)
[2021-11-19] MEDS ORDERED: diphenhydrAMINE 50 MG/ML VIAL IV PRN (01:29)
[2021-11-19] MEDS ORDERED: ONDANSETRON INJ 2 MG/ML 2 ML VIAL IV PRN (01:29)
[2021-11-19] MEDS ORDERED: diphenhydrAMINE Capsule 25 MG CAP PO PRN (01:29)
[2021-11-19] MEDS: oxyCODONE/ACETAMINOPHEN 5mg/325mg TAB PO PRN ×5 (03:47→22:46)
[2021-11-19] MEDS: IBUPROFEN 600 MG TAB PO PRN ×5 (03:47→22:46)
[2021-11-19 07:00] LABS: Basophils # (auto) 0.01 K/uL (0-0.2); Basophils % (auto) 0.1 %; Eosinophils # (auto) 0.05 K/uL (0-0.5); Eosinophils % (auto) 0.4 %; Hematocrit (blood only) 33.7 % (37-47); Hemoglobin 11.3 g/dL (12.0-16.0); Immature Granulocytes # (auto) 0.01 K/uL (0.00-0.02); Immature Granulocytes % (auto) 0.1 %; Lymphocytes # (auto) 1.69 K/uL (1.2-3.4); Lymphocytes % (auto) 14.9 %; Mean Corpuscular Hgb Conc 33.5 g/dL (32-36); Mean Corpuscular Volume 86.6 fL (80-100); Monocytes # (auto) 0.67 K/uL (0.11-0.59); Monocytes % (auto) 5.9 %; Neutrophils # (auto) 8.92 K/uL (1.4-6.5); Neutrophils % (auto) 78.6 %; Platelet Count 174 K/uL (130-400); RDW Coefficient of Variation 14.7 % (11.5-14.5); RDW Standard Deviation 45.8 fL (36.4-46.3); Red Blood Count 3.89 M/uL (4.2-5.4); White Blood Count 11.35 K/uL (4.8-10.8)
[2021-11-19] MEDS: FERROUS SULFATE 325 MG TAB PO SCH (08:35)
[2021-11-19] MEDS: DOCUSATE SODIUM 100 MG CAP PO SCH ×2 (08:35→20:04)
[2021-11-19] MEDS: SIMETHICONE 80 MG CHEW PO SCH ×4 (08:35→20:04)
[2021-11-19] MEDS: PRENATAL VITAMIN 1 TAB PO SCH (08:36)
--- NOTE | 2021-11-19 09:56 | Obstetrical Progress Note ---
Date of Service November 19, 2021 Subjective Ambulation: ambulating normally Voiding: no voiding problems Passing Gas:: Yes Diet Tolerance:: regular diet Lochia:: Small Feeding Type:: breast feeding Current Pain Level(1-10): 0 doing well Physical Exam Constitutional WD/WN, vitals as above comfortable abdomen non-tender/soft incision c/d/i neg edema neg Toshia's Results & Data ([facility]) Vital Signs (Past 12 Hours) Vital Signs Temp Pulse Resp BP Pulse Ox 11/19/21 07:21 36.3 C L 52 L 20 123/81 95 11/19/21 03:40 36.9 C 56 L 16 129/73 95 11/19/21 02:41 16 95 11/19/21 01:00 17 96 11/19/21 00:10 16 95 11/18/21 23:40 36.6 C 57 L 16 112/68 94 11/18/21 23:00 16 96 11/18/21 22:00 16 94 Laboratory Results 11/18/21 11/18/21 11/19/21 06:14 07:05 06:32 WBC 8.26 11.35 H RBC 4.06 L 3.89 L Hgb 11.9 L 11.3 L Hct 35.1 L 33.7 L MCV 86.5 86.6 MCH 29.3 29.0 MCHC 33.9 33.5 RDW Std Deviation 45.5 45.8 RDW Coeff of Beverley 14.4 14.7 H Plt Count 176 174 MPV 11.9 H 12.0 H Immature Gran % (Auto) 0.2 0.1 Neut % (Auto) 67.0 78.6 Lymph % (Auto) 24.1 14.9 Day % (Auto) 8.4 5.9 Eos % (Auto) 0.2 0.4 Baso % (Auto) 0.1 0.1 Neut # (Auto) 5.53 8.92 H Lymph # (Auto) 1.99 1.69 Day # (Auto) 0.69 H 0.67 H Eos # (Auto) 0.02 0.05 Baso # (Auto) 0.01 0.01 Immature Gran # (Auto) 0.02 0.01 Blood Type O Positive Antibody Screen NEGATIVE
[2021-11-19] MEDS ORDERED: bisacodyL 5 MG TABEC PO SCH (20:00)
[2021-11-19] MEDS: SERTRALINE HCL 50 MG TABLET PO SCH (20:56)
[2021-11-20] MEDS: IBUPROFEN 600 MG TAB PO PRN ×3 (02:52→10:58)
[2021-11-20] MEDS: oxyCODONE/ACETAMINOPHEN 5mg/325mg TAB PO PRN ×3 (02:53→10:58)
--- NOTE | 2021-11-20 07:18 | Obstetrical Progress Note ---
Date of Service November 20, 2021 Assessment & Plan (1) Normal course: Doing well D/c home Subjective Ambulation: ambulating normally Voiding: no voiding problems Passing Gas:: Yes Diet Tolerance:: regular diet Lochia:: Small Feeding Type:: bottle feeding Current Pain Level(1-10): 0 Doing well, no complaints Would like to go hoem today Physical Exam Constitutional WD/WN, vitals as above Respiratory normal respiratory effort, lungs clear to auscultation Cardiovascular RRR, no murmur, no edema Gastrointestinal (Abdomen) normal bowel sounds, soft, nontender, no hepatosplenomegaly incision clean dry intact and healing well Results & Data ([facility]) Vital Signs (Past 12 Hours) Vital Signs Temp Pulse Resp BP Pulse Ox 11/19/21 22:40 36.7 C 54 L 16 137/87 96 11/19/21 19:45 36.5 C 70 16 128/84 96
[2021-11-20 07:33] LABS: Hematocrit (blood only) 33.8 % (37-47); Hemoglobin 11.1 g/dL (12.0-16.0)
[2021-11-20] MEDS ORDERED: bisacodyL 10 MG SUPP PR PRN (08:37)
[2021-11-20] MEDS: DOCUSATE SODIUM 100 MG CAP PO SCH (08:49)
[2021-11-20] MEDS: SIMETHICONE 80 MG CHEW PO SCH (08:49)
[2021-11-20] MEDS: FERROUS SULFATE 325 MG TAB PO SCH (08:49)
[2021-11-20] MEDS: PRENATAL VITAMIN 1 TAB PO SCH (08:49)
[2021-11-20 09:38] VITALS: BP 119/75; PULSE 58; TEMP 97.9; O2SAT 97
== END 2021-11-20 12:40 | disposition home or self-care (01) | DRG 788 ==
LOC: 4S1 05:14 → EDSTATUS 07:30 → 4S2 12:00
DX: O99.344 Other mental disorders complicating childbirth; F41.1 Generalized anxiety disorder; Z3A.39 39 weeks gestation of pregnancy; Z88.5 Allergy status to narcotic agent; O34.211 Maternal care for low transverse scar from previous cesarean delivery; Z88.8 Allergy status to other drugs, medicaments and biological substances; Z37.0 Single live birth